=== PATIENT | male | born 1975 | race Caucasian/White ===

== ENCOUNTER 2018-09-10 09:23 | Emergency (ER) | payer SELFPAY | END 2018-09-10 10:10 | disposition home or self-care (01) | LOC: MADERS 09:23 | DX: K04.7 Periapical abscess without sinus (principal); K02.9 Dental caries, unspecified; F17.210 Nicotine dependence, cigarettes, uncomplicated; Z71.6 Tobacco abuse counseling; Z79.899 Other long term (current) drug therapy | CPT/HCPCS: 99406 ==